=== PATIENT | female | born 1985 | race Caucasian/White ===

== ENCOUNTER 2017-02-15 10:39 | Emergency (ER) | payer BC ==
[~2017-02-15] VITALS: Ht 165.1 cm; Wt 60.6 kg
[2017-02-15 12:14] LABS: HEMATOCRIT 32.5 % (36.0-46.0); MCH 23.8 PG (29.0-34.0); MCHC 30.2 G/DL (30.0-36.0); MCV 79.1 FL (83-99); PLATELET COUNT 226 K/uL (156-360); RBC DIS.WIDTH-CV 14.8 % (11.8-14.6); RBC DIS.WIDTH-SD 42.3 % (39-53); RED BLOOD COUNT 4.11 M/uL (3.80-5.20); WHITE BLOOD COUNT 4.1 K/uL (4.1-10.2)
[2017-02-15 12:32] LABS: CHLORIDE 106 mEq/L (99-109); POTASSIUM 3.8 mEq/L (3.7-5.4)
[2017-02-15 12:33] LABS: SODIUM 138 mEq/L (136-147)
[2017-02-15 12:34] LABS: GLUCOSE 92 mg/dL (70-99)
[2017-02-15 12:36] LABS: ANION GAP 11 MEQ/L (2-14)
[2017-02-15 12:38] LABS: GFR ESTIMATE (CALCULATED) > 59 mL/min/
[2017-02-15 12:39] LABS: ADD MIUA? YES; BILIRUBIN NEGATIVE; BLOOD NEGATIVE; COLOR YELLOW ((YELLOW)); GLUCOSE (STRIP) NEGATIVE; KETONES NEGATIVE; LEUKOCYTES TRACE; NITRITE NEGATIVE; PROTEIN (STRIP) NEGATIVE; UROBILINOGEN 0.2 MG/DL (0.2-1.0)
[2017-02-15 12:39] LABS: UREA NITROGEN (BUN) 14 mg/dL (9-23)
[2017-02-15 12:47] LABS: QUANTITATIVE HCG < 4.0 MIU/ML
[2017-02-15 12:47] LABS: BACTERIA RARE /HPF; EPITHELIAL CELLS 1+ /HPF; MUCUS TRACE /LPF; RED BLOOD CELLS 0-5 /HPF (0-5); WHITE BLOOD CELLS 0-5 /HPF (0-5)
[2017-02-15] MEDS ORDERED: SLOW RELEASE I160 MG PO (14:08)
[2017-02-15 15:40] VITALS: BP 121/89
[2017-02-16 13:24] LABS: CHLAMYDIA TRACHOMATIS NEGATIVE; NEISSERIA GONORRHOEAE NEGATIVE
== END 2017-02-15 15:41 | disposition home or self-care (01) ==
LOC: EME 10:39
PROVIDERS: Nurse Practitioner Family
DX: R59.0 Localized enlarged lymph nodes (principal); D64.9 Anemia, unspecified; Z90.721 Acquired absence of ovaries, unilateral
CPT/HCPCS: 76856; 80048; 81003; 84702; 84702 90; 85027; 87210; 87491; 87591; 99281; 99284